=== PATIENT | female | born 1970 | race Two or more races ===

== ENCOUNTER 2022-09-01 09:08 | Day surgery (SDC) | payer MEDICAID ==
[2022-08-28 08:59] LABS: Basophils # (auto) 0.1 10 ^3/uL (0-0.2); Eosinophils # (auto) 0.3 10 ^3/uL (0-0.8); Lymphocytes # (auto) 2.8 10 ^3/uL (0.4-5.4); Mean Corpuscular Hgb Conc. 33.6 g/dL (32.0-36.0); Monocytes # (auto) 0.6 10 ^3/uL (0-1.3); Nucleated Red Blood Cells % 0.2 %
[2022-08-28 09:00] LABS: Basophils % (auto) 1.2 % (0.0-2.0); Eosinophils % (auto) 4.4 % (0.0-7.0); Hemoglobin 14.8 g/dL (12.2-16.2); Lymphocytes % (auto) 38.4 % (10.0-50.0); Mean Corpuscular Hemoglobin 26.5 pg (28.0-32.0); Mean Corpuscular Volume 78.7 fL (80.0-100.0); Monocytes % (auto) 7.7 % (0.0-12.0); Neutrophils # (auto) 3.5 10 ^3/uL (1.6-8.6); Neutrophils % (auto) 48.3 % (37.0-80.0); Red Blood Cells 5.59 10^6/uL (4.0-5.20); White Blood Cell 7.3 10^3/uL (4.4-10.8)
[2022-08-28 09:15] LABS: Partial Thromboplastin Time 31.9 sec (24.6-33.4)
[2022-08-28 09:53] LABS: Calcium 9.3 mg/dL (8.5-10.1); Potassium 3.9 mmol/L (3.5-5.1)
[2022-08-28 09:59] LABS: Albumin 4.1 g/dL (3.4-5.0); BUN/Creatinine Ratio 23.2 (10.0-20.0); Bilirubin, Total 0.6 mg/dL (0.2-1.0); Total Protein 8.2 g/dL (6.4-8.2)
[~2022-09-01] VITALS: Ht 154.9 cm; Wt 47.6 kg
[~2022-09-01 09:08] MED LIST: METF-370 PO; SODIUM CHLORIDE LOCK 10 ML ONE; diphenhdrAMINE HCL 50 MG/1 ML VL ONE
[2022-09-01] MEDS: fentaNYL CITRATE 100 MCG/2 ML VL ONE ×3 (10:36→10:45)
[2022-09-01] MEDS: MIDAZOLAM HCL 5 MG/ML-1ML VIAL ONE ×2 (10:36→10:40)
[2022-09-01 11:25] VITALS: BP 126/85
== END 2022-09-01 12:46 | disposition home or self-care (01) ==
LOC: GI 09:08
PROVIDERS: ATTEND Internal Medicine Gastroenterology
DX: Z12.11 Encounter for screening for malignant neoplasm of colon (principal); K64.8 Other hemorrhoids; Z20.822 Contact with and (suspected) exposure to COVID-19; E11.9 Type 2 diabetes mellitus without complications; Z79.84 Long term (current) use of oral hypoglycemic drugs
CPT/HCPCS: 36415; 45378; 80053; 82962; 85025; 85610; 85730; J1200; J2250; J3010; J7030; U0003